=== PATIENT | female | born 1995 | race Caucasian/White ===

== ENCOUNTER 2016-11-08 18:11 | Outpatient (CLI) | payer BC ==
[~2016-11-08] VITALS: Ht 157.5 cm; Wt 78.0 kg
[2016-11-08 18:34] VITALS: BP 123/73
[2016-11-08] MEDS ORDERED: PRENATAL TABLE1 EACH PO (18:38)
[2016-11-08] MEDS ORDERED: ASPIR 8181 M1 PO (18:38)
== END 2016-11-08 19:20 | disposition home or self-care (01) ==
LOC: LDRP-OP 18:11 → 2WEST 18:14 → LDRP-OP 02-05 15:53
DX: O36.8130 Decreased fetal movements, third trimester, not applicable or unspecified (principal); Z3A.31 31 weeks gestation of pregnancy; O99.333 Smoking (tobacco) complicating pregnancy, third trimester; F17.210 Nicotine dependence, cigarettes, uncomplicated
CPT/HCPCS: 59025; G0378

== ENCOUNTER 2016-12-26 07:22 | Outpatient (CLI) | payer BC ==
[~2016-12-26] VITALS: Ht 157.5 cm; Wt 65.7 kg
[2016-12-26] VITALS (7 sets, daily range): BP systolic 108–118; BP diastolic 61–74
[~2016-12-26 07:22] MED LIST: ASPIR 8181 M1 PO; PRENATAL TABLE1 EACH PO
[2016-12-26 10:31] LABS: ADD MIUA? YES; BILIRUBIN NEGATIVE; BLOOD NEGATIVE; COLOR YELLOW ((YELLOW)); GLUCOSE (STRIP) NEGATIVE; KETONES NEGATIVE; LEUKOCYTES TRACE; NITRITE NEGATIVE; PROTEIN (STRIP) NEGATIVE; UROBILINOGEN 0.2 MG/DL (0.2-1.0)
[2016-12-26 10:34] LABS: BACTERIA RARE /HPF; EPITHELIAL CELLS 1+ /HPF; MUCUS NONE SEEN /LPF; RED BLOOD CELLS 0-5 /HPF (0-5); WHITE BLOOD CELLS 0-5 /HPF (0-5)
== END 2016-12-26 11:00 | disposition home or self-care (01) ==
LOC: LDRP-OP 07:22 → 2WEST 07:23 → LDRP-OP 02-05 21:42
PROVIDERS: Obstetrics & Gynecology
DX: O32.2XX0 Maternal care for transverse and oblique lie, not applicable or unspecified (principal); Z3A.38 38 weeks gestation of pregnancy; R00.0 Tachycardia, unspecified
CPT/HCPCS: 59025; 81003; G0378

== ENCOUNTER 2017-01-18 20:57 | Inpatient (IN) | payer BC ==
[~2017-01-18] VITALS: Ht 157.5 cm; Wt 84.0 kg
[2017-01-18 21:17] VITALS: BP 133/83
[2017-01-18 23:08] LABS: EOSINOPHIL (%) 0.2 % (0-5); HEMATOCRIT 35.9 % (36.0-46.0); IMMATURE GRANULOCYTE (%) 0.8 % (0.0-0.7); IMMATURE GRANULOCYTE COUNT 0.1 K/uL; INSTRUMENT ABS NEUTROPHIL CT 7.4 K/uL; LYMPHOCYTE COUNT 3.3 K/uL (1.0-2.8); MCH 28.9 PG (29.0-34.0); MCHC 34.3 G/DL (30.0-36.0); MCV 84.5 FL (83-99); MEAN PLAT.VOLUME 9.6 uM^3 (9.5-12.4); MONOCYTE COUNT 0.6 K/uL (0-0.8); NEUTROPHIL (%) 65.1 % (45-76); NEUTROPHIL COUNT 7.4 K/uL (1.8-6.4); PLATELET COUNT 316 K/uL (156-360); RBC DIS.WIDTH-CV 13.2 % (11.8-14.6); RBC DIS.WIDTH-SD 40.7 % (39-53); RED BLOOD COUNT 4.25 M/uL (3.80-5.20); WHITE BLOOD COUNT 11.4 K/uL (4.1-10.2)
[2017-01-18 23:12] VITALS: BP 119/79
[2017-01-18 23:49] VITALS: BP 123/77
[2017-01-19] VITALS (23 sets, daily range): BP systolic 98–137; BP diastolic 50–88
[2017-01-19 00:23] LABS: AMPHETAMINE NEGATIVE (500 ng/mL); BARBITURATES NEGATIVE (200 ng/mL); BENZODIAZEPINES NEGATIVE (150 ng/mL); COCAINE NEGATIVE (150 ng/mL); INTERNAL CONTROLS VALID? YES; METHADONE NEGATIVE (200 ng/mL); METHAMPHETAMINE NEGATIVE (500 ng/mL); OPIATES (MORPHINE) NEGATIVE (100 ng/mL); OXYCODONE NEGATIVE (100 ng/mL); PHENCYCLIDINE NEGATIVE (25 ng/mL); PROPOXYPHENE NEGATIVE (300 ng/mL); THC CANNABINOIDS NEGATIVE (50 ng/mL); TRICYCLIC ANTIDEPRESSANTS NEGATIVE (300 ng/mL)
[2017-01-20] VITALS (18 sets, daily range): BP systolic 96–129; BP diastolic 53–74
[2017-01-20] MEDS ORDERED: IBUPROFEN800 MG PO (09:57)
== END 2017-01-21 13:05 | disposition home or self-care (01) | DRG 775 ==
LOC: LDRP-OP 20:57 → 2WEST 20:59 → LDRP-OP 02-05 13:46
PROVIDERS: Midwife
DX: O48.0 Post-term pregnancy (principal); O75.89 Other specified complications of labor and delivery; O69.1XX0 Labor and delivery complicated by cord around neck, with compression, not applicable or unspecified; R03.0 Elevated blood-pressure reading, without diagnosis of hypertension; O99.334 Smoking (tobacco) complicating childbirth; F17.210 Nicotine dependence, cigarettes, uncomplicated; Z3A.42 42 weeks gestation of pregnancy; Z37.0 Single live birth
CPT/HCPCS: 85025; G0378; J0595; J1050; J2405; J7120